=== PATIENT | female | born 1990 ===

== ENCOUNTER 2020-02-21 11:27 | Inpatient (IN) | payer OTHER ==
[~2020-02-21] VITALS: Ht 167.6 cm; Wt 107.5 kg
[2020-02-21] MEDS ORDERED: PRENATAL TABLE1 EAC3 PO (12:16)
[2020-02-22] MEDS ORDERED: INDOMETHACIN25 MG PO (12:23)
[2020-02-22] MEDS ORDERED: ZITHROMAX200 MG PO (12:25)
== END 2020-02-22 13:35 | disposition home or self-care (01) | DRG 819 ==
LOC: OB/GYN 11:27 → LDR 11:29 → OB/GYN 11:29 → O/R 11:29 → LDR 15:28 → O/R 15:28 → OB/GYN 19:55 → O/R 19:55 → OB/GYN 19:55 → O/R 02-22 16:11 → OB/GYN 02-22 16:11
PROVIDERS: ADMIT Obstetrics & Gynecology Maternal & Fetal Medicine; ATTEND Obstetrics & Gynecology Maternal & Fetal Medicine
PROC: 0UVC7ZZ Restriction of Cervix, Via Natural or Artificial Opening (ICD-10-PCS; principal; 2020-02-21 14:00)
DX: O34.32 Maternal care for cervical incompetence, second trimester (principal); O26.872 Cervical shortening, second trimester; Z3A.22 22 weeks gestation of pregnancy

== ENCOUNTER → 2020-02-21 | Outpatient (CLI) | payer OTHER ==
[~2020-02-21] MED LIST: INDOMETHACIN25 MG PO; PRENATAL TABLE1 EAC3 PO; ZITHROMAX200 MG PO
== END | disposition home or self-care (01) ==
LOC: PRENATAL 08:04
PROVIDERS: ATTEND Obstetrics & Gynecology Maternal & Fetal Medicine
DX: O26.872 Cervical shortening, second trimester (principal); O35.3XX1 Maternal care for (suspected) damage to fetus from viral disease in mother, fetus 1; O35.0XX1 Maternal care for (suspected) central nervous system malformation in fetus, fetus 1; O98.512 Other viral diseases complicating pregnancy, second trimester; O99.212 Obesity complicating pregnancy, second trimester; Z36.89 Encounter for other specified antenatal screening; Z3A.22 22 weeks gestation of pregnancy